=== PATIENT | male | born 1955 | race Caucasian/White ===

== ENCOUNTER 2020-01-11 05:21 | Emergency (ER) | payer BC ==
[~2020-01-11] VITALS: Ht 177.8 cm; Wt 90.0 kg
[2020-01-11] MEDS ORDERED: IBUPROFEN 600MG TABLET PO ONE (09:15)
[2020-01-11] MEDS ORDERED: KETOROLAC 30MG/ML VIAL IM ONE (09:30)
[2020-01-11] MEDS ORDERED: ALBUTEROL (0.083%) 2.5MG/3ML NEB HHN ONE (10:00)
[2020-01-11 11:42] VITALS: BP 152/76
== END 2020-01-11 11:45 | disposition home or self-care (01) ==
LOC: ER 05:21
DX: J06.9 Acute upper respiratory infection, unspecified (principal); E11.9 Type 2 diabetes mellitus without complications; E78.00 Pure hypercholesterolemia, unspecified; I10 Essential (primary) hypertension
CPT/HCPCS: 71045; 87070; 87430; 87804; 94640; 96372; 99284; J1885; Z7610